=== PATIENT | male | born 1985 | race Caucasian/White ===

== ENCOUNTER 2017-02-17 09:42 | Observation (INO) ==
[2017-02-17] MEDS ORDERED: PANTOPRAZOLE 40 MG VIAL IV STA (10:04)
[2017-02-17] MEDS ORDERED: PANTOPRAZOLE 40 MG VIAL IV ONE (10:15)
[2017-02-17 10:18] LABS: Basophils # 0.1 10*3/uL (0.0-0.2); Basophils % 0.6 % (0.0-0.8); Eosinophils # 0.3 10*3/uL (0.0-0.87); Eosinophils % 2.8 % (0.00-10.9); Hematocrit 43.9 VOL% (42.0-52.0); Hemoglobin 15.4 GM/DL (14.0-18.0); Immature Granulocytes % 0.3 %; Immature Granulocytes Absolute 0.03 #; Lymphocytes # 2.3 10*3/uL (1.4-4.0); Lymphocytes % 24.3 % (21.2-54.2); Mean Corpuscular HGB Conc 35.1 GM/DL (32-36); Mean Corpuscular Hemoglobin 31 PG (27-34); Mean Corpuscular Volume 87.8 FL (87-102); Monocytes # 0.6 10*3/uL (0.11-0.8); Monocytes % 6.7 % (1.7-12.7); Neutrophils # 6.2 10*3/uL (1.4-7.4); Neutrophils % 65.3 % (38.7-73.9); Platelet Count 212 T/CUMM (130-400); Red Cell Distribution Width 12.6 % (9.3-17.3); White Blood Count 9.5 T/CUMM (4-12)
--- NOTE | 2017-02-17 10:20 | Emergency Department Note ---
Enzo Diamond Gwan, am scribing for, and in the presence of, Emery Coughlin MD 09:57 . Madyson Diamond James D, MD, personally performed the services described in this documentation, ascribed by Coleen Giraldo in my presence, and it is both accurate and complete . Arrival - Arrival Chief Complaint: Abdominal / Flank Pain Stated Complaint: stomach discomfort and pain lasting over 48hrs ED Nursing Triage Note: c/o upper stomach pain onset thursday. Mode of Arrival: Ambulatory Limitations: No Limitations Source: Patient, Old Records Reviewed, RN Notes Reviewed - History of Present Illness HPI Narrative: Patient is a 31 y/o male who presents to the ED with a c/o intermittent upper abd pain with an onset 4 days ago. He stated that his pain onset during the day when getting out of the pool. Patient describes his pain as more discomfort than pain and that his last BM was yesterday afternoon. He continued to note that he has had this pain before and usually at night. He confirmed that he has a very stressful job but denies an appetite. Patient is followed by Dr. Sesay in [place]. During exam, he said that he has had some red blood with BM but he has been told by PCP that it could be from hemorrhoids. He has a SHx of obsessional ETOH. No other problems/complaints reported in ED. Onset (ago): day(s) Consistency: constant Severity: moderate Allergies/Adverse Reactions: Allergies Allergy/AdvReac Type Severity Reaction Status Date / Time No Known Allergies Allergy Unverified 02/17/17 09:50 Home Medications: Home Medications Medication Instructions Recorded Confirmed Type PARoxetine [Paxil] 20 mg PO DAILY 02/17/17 02/17/17 History clonazePAM TAB [KlonoPIN] 0.5 mg PO BID PRN 02/17/17 02/17/17 History Review of System - Review of System 12 point system: reviewed and no additional remarkable complaints except as stated - Review of System Constitutional: Absent: chills, fever Eyes: Absent: discharge, pain Head/Ears/Nose/Throat: Absent: earache, epistaxis Gastrointestinal: Present: as per HPI, abdominal pain Medical,Surgical,& Family Hx - Medical History Psychological: History of: Anxiety Disorders - Social History Smoking Status: Smoker, status unknown Frequency of Alcohol Use: Occasionally Type of Drug Use: None Exam Physical Examination: GENERAL: This is a male in no apparent distress. VITAL SIGNS: HEENT: Head is normocephalic and atraumatic. Pupils are equally round and reactive to light. Extraocular movement are intact. Oropharynx is benign with moist mucous membranes. NECK: Neck is soft and supple without tenderness. There are no masses. There is no lymphadenopathy. LUNGS: Lungs are clear to auscultation bilaterally. Chest rises symmetrically. There is no chest wall tenderness. CV: Heart is regular rate and rhythm without murmurs, rubs, or gallops. ABDOMEN: Abdomen is soft, tender to palpation in right upper quadrant epigastric area. There are no abnormal masses palpated. There is no organomegaly. Bowel sounds are present and active. SKIN: Skin is warm and dry. No rash. EXTREMITIES: Patient has full range of motion without tenderness. There is no pedal edema. NEUROLOGIC: Awake, alert, and oriented x4. Cranial nerves II through XII are grossly intact. There are no motorsensory deficits. PSYCHIATRIC: Normal affect. Normal mood. Vital Signs: Vital Signs Temperature 98.4 F 02/17/17 10:00 Pulse Rate 54 L 02/17/17 11:00 Respiratory Rate 18 02/17/17 11:00 Blood Pressure 120/69 02/17/17 11:00 O2 Sat by Pulse Oximetry 100 02/17/17 11:00 Course - Consultations Consultation #1: Discussed with Dr. Cruz. Patient will be admitted to his service. Time: 11:42 Results - Labs CBC & BMP: 02/17/17 09:56 02/17/17 09:56 Lab Results: I have reviewed the patients labs Labs: Laboratory Tests 02/17/17 09:56 WBC 9.5 RBC 5.00 Hgb 15.4 Hct 43.9 Plt Count 212 Laboratory Tests 02/17/17 09:56 Sodium 139 Potassium 4.3 Chloride 105 Carbon Dioxide 27 BUN 14 Creatinine 1.10 Lipase 397.0 H - Diagnostic Findings Procedure: Abdominal x-ray: image reviewed by me (Nonspecific gas pattern, no free air, gas in the rectum.), Chest x-ray: image reviewed by me (No infiltrates , no pleural effusions.), Ultrasound: image reviewed by me, pending ( Gallbladder ultrasound: Cholelithiasis with a stone in the neck of the gallbladder. Borderline thickened gallbladder wall.) Disposition Clinical Impression: Epigastric pain, Right upper quadrant abdominal pain, Acute cholecystitis Case discussed with: patient Condition: Stable
[2017-02-17 10:57] LABS: Albumin 4.5 G/DL (3.4-5.0); Bilirubin,Total 0.4 MG/DL (0.2-1.0); Osmolality,Calculated 277.5 MOS/KG (273-304); Potassium 4.3 MMOL/L (3.5-5.1); Total Protein 7.7 G/DL (6.4-8.3)
[2017-02-17 11:29] LABS: Apearance,Urine CLEAR (Clear); Bilirubin,Urine Negative (Negative); Blood, Urine Negative (Negative); Glucose,Urine (UA) Negative (Negative); Ketones,Urine Negative (Negative); Mucus,Urine Few /LPF (Occasional); Nitrite,Urine Negative (Negative); Protein,Urine Negative; RBC,Urine 1 /HPF (0-4); Urine Color Yellow (Yellow); Urine Specific Gravity 1.019 (1.001-1.035); Urine Urobilinogen < 2.0 EU/DL (0.2-1.0); WBC,Urine 1 /HPF (0-6)
--- NOTE | 2017-02-17 11:30 | Ultrasound Report ---
History is epigastric and right upper abdominal pain There is gallbladder sludge with multiple small gallstones present. There is a stone lodged in the gallbladder neck. Gallbladder wall thickness measures up to 3 mm No biliary ductal dilatation is seen No right renal hydronephrosis seen The liver is 16.9 cm in length. Hepatic echotexture is normal Pancreas is obscured by overlying bowel gas Aorta and IVC are obscured by bowel gas Impression: 1. Midline retroperitoneal structures are obscured 2. Cholelithiasis including a stone lodged in the gallbladder neck with borderline gallbladder wall thickness. Is there any clinical question of acute cholecystitis? The Ultrasound images were captured and stored. PROCEDURE INTERPRETED AT [facility] DEPARTMENT OF RADIOLOGY Final Report Signed by: Dr. Mandi Bautista
--- NOTE | 2017-02-17 11:33 | XRay Report ---
History: Abdominal pain Date: 02/17/2017 Study: Flat and erect abdomen Comparison exam: No previous There is no evidence of pneumoperitoneum. Some small nonspecific fluid levels are noted in small bowel on the upright view. Some scattered stool and air are noted in the normal caliber colon. There is no renu bowel obstruction or gross mass lesion. No radiopaque calculi are seen. Phlebolith overlies the right hemipelvis. Osseous structures are unremarkable. Impression: Occasional small scattered nonspecific air-fluid levels without renu obstruction. Consider gastroenteritis. No definite acute process otherwise PROCEDURE INTERPRETED AT [facility] DEPARTMENT OF RADIOLOGY Final Report Signed by: Dr. Kelsy Manzo
--- NOTE | 2017-02-17 11:41 | XRay Report ---
History: Abdominal pain Date: 02/17/2017 Study: Chest x-ray single view Comparison exam: No previous chest x-ray The cardiac silhouette is not enlarged. There is no mediastinal mass. The pulmonary vasculature is not engorged. There is no pleural effusion. The lungs are well-expanded and are without acute infiltrate. There is no acute osseous abnormality. Impression: No acute cardiopulmonary process PROCEDURE INTERPRETED AT [facility] DEPARTMENT OF RADIOLOGY Final Report Signed by: Dr. Kelsy Manzo
[2017-02-17] MEDS ORDERED: ACETAMINOPHEN 325 MG TABLET PO PRN (12:44)
[2017-02-17] MEDS ORDERED: PROMETHAZINE 25 MG/1 ML VIAL IM PRN (12:44)
[2017-02-17] MEDS ORDERED: BISACODYL 5 MG TABLET PO PRN (12:44)
[2017-02-17] MEDS ORDERED: KETOROLAC 15 MG/1 ML VIAL IV PRN (12:44)
[2017-02-17] MEDS ORDERED: HYDROmorphone 2 MG/1 ML VIAL IV PRN (12:44)
[2017-02-17] MEDS ORDERED: ONDANSETRON 4 MG/2 ML VIAL IV PRN (12:44)
--- NOTE | 2017-02-17 13:08 | General Surg History&Physical ---
Assessment and Plan - Time spent with patient Time spent with patient: Greater than 30 minutes (1) Cholecystitis, acute with cholelithiasis Status: Acute Assessment and plan: Mr. Davis is a very pleasant 31-year-old white male with history of obstructive sleep apnea and anxiety disorder admitted by Dr. Cruz through the emergency room with acute cholecystitis with cholelithiasis and mild pancreatitis. Patient will be admitted and started on IV fluids and a clear liquid diet. He will be given pain and nausea control medicines along with antibiotics. Patient will be made n.p.o. after midnight and his labs will be rechecked in the morning. If his pancreatitis has resolved, he will go to the operating room for laparoscopic cholecystectomy by Dr. Cruz. If his lipase is rising then GI will be consulted for ERCP. Patient's anxiety medicines will be restarted and his will bring his CPAP machine. Will consult Dr. Cage to see the patient while he is here in the hospital for an ill fitting CPAP mask. Dr. Cruz has seen and examined patient and further recommendations to follow. Current Visit: Yes (2) Pancreatitis Status: Acute Current Visit: Yes (3) Obstructive sleep apnea Status: Acute Current Visit: Yes (4) Anxiety disorder Status: Acute Current Visit: Yes (5) Right upper quadrant abdominal pain Status: Acute Current Visit: Yes History of Present Illness Chief complaint: Abdominal pain and nausea History of present illness: Mr. Davis is a 31 year old white male with history of anxiety disorder and obstructive sleep apnea presented to the ED with a 2 day history of abdominal pain with nausea and vomiting. Patient states starting Thursday afternoon he started having some abdominal pain that he felt was bloating in the right upper quadrant and epigastric region. He states it somewhat went away but the last 2 nights it has been pretty severe. States he has not eaten anything about a day and a half because he is just not hungry. Patient states really off and on for the last several months he has had this pain and he was contributing it to an ill fitting CPAP mask. Patient states he has lost about 50-60 pounds in the last year on purpose and he feels his mask is not fitting appropriately anymore. Patient is complaining of nausea and bloating that is worse at night. Patient denies headache, dysphasia, chest pain, shortness of breath, constipation or diarrhea, or lower extremity edema. Past surgical history includes multiple orthopedic football injuries but nothing in the abdomen. Patient is afebrile and his vital signs are stable. Lab work is only showing a mildly elevated lipase. Ultrasound of the gallbladder shows cholelithiasis with sludge and multiple stones including a stone lodged in the gallbladder neck with gallbladder wall thickness. After discussion with Dr. Coughlin the ED physician and Dr. Cruz the surgeon, it was agreed patient would be admitted for further evaluation and treatment. Home Medications Medication Instructions Recorded Confirmed Type PARoxetine [Paxil] 20 mg PO DAILY 02/17/17 02/17/17 History clonazePAM TAB [KlonoPIN] 0.5 mg PO BID PRN 02/17/17 02/17/17 History Allergies Allergy/AdvReac Type Severity Reaction Status Date / Time No Known Allergies Allergy Unverified 02/17/17 09:50 Medical,Surgical,& Family Hx - Medical History Psychological: History of: Anxiety Disorders Respiratory: History of: Obstructive Sleep Apnea - Surgical History Orthopedic Surgeries: Surgical HX of;: Orthopedic Surgery - Family History Family History: Reports;: Family Cancer - Social History Smoking Status: Smoker, status unknown Frequency of Alcohol Use: Occasionally Type of Drug Use: None Marital Status: Lives With:: Spouse Functional capacity: independent ambulation Exam - Constitutional Vitals: Period Temp Pulse Resp BP Sys/Arroyo Pulse Ox Last 24 Hr 98.4 F-98.4 F 53-69 18-18 100-137/55-76 98-100 Exam: Constitutional System: No distress. No tremulousness. Head: Normocephalic, atraumatic. Ears, Nose and Throat System: No evidence of Otitis or Mastoiditis. No epistaxis or discharge Eyes System: Pupils equal, round, and reactive. Extraocular muscles intact. Neck: Supple, without adenopathy, No jugular venous distention. No thyromegaly, neck mass, or prior surgery apparent. Respiratory System: Chest clear to auscultation. Cardiovascular System: Heart with regular rate and rhythm. No murmur. GI System: Abdomen soft, mildly tender in right upper quadrant and epigastric region. Normo active bowel sounds present. Musculoskeletal System: limbs with no pedal edema. Full distal pulses. Neurological System: No discernable sensory deficit. No aphasia Psychiatric System: Conversation is rational Review of systems: A complete 10 system review of systems was obtained and pertinent positives and negatives per HPI Quality Measures - VTE Contraindication to Pharmacological VTE Prophylaxis: Clinical assessment deems Pt at low risk, no prophalaxis needed Results - Labs CBC & BMP: 02/17/17 09:56 02/17/17 09:56 Lab Results: I have reviewed the past 24 hour labs - Diagnostic Findings Procedure: Ultrasound: report reviewed by me (Ultrasound of the abdomen shows cholelithiasis including sludge with multiple gallstones and a stone lodged in the gallbladder neck with gallbladder wall thickness.)
[2017-02-17] MEDS ORDERED: clonazePAM 0.5 MG TABLET PO PRN (14:04)
[2017-02-17] MEDS: PARoxetine 20 MG TABLET PO SCH (14:19)
[2017-02-17] MEDS: PANTOPRAZOLE 40 MG VIAL IV SCH (14:19)
--- NOTE | 2017-02-17 14:58 | Sleep Medicine Consult ---
Assessment and Plan (1) Obstructive sleep apnea Status: Acute Assessment and plan: This patient does have a history of moderate obstructive sleep apnea diagnosed 7 years ago. He has lost over 30 pounds since the time of his original diagnosis. His sleep apnea may not be as bad as it was at the time of his original diagnosis and weight. I think it would be better to place him on auto titration device tonight with pressure range from 5-12 cm and see if he would benefit from a lower pressure. Certainly CPAP can contribute to aerophagia and discomfort though he obviously does have a cause for his abdominal pain and this is unlikely related to CPAP. Nevertheless, with such significant weight loss, I do think he may not need as much CPAP pressure as he was on to begin with. Current Visit: Yes History of Present Illness Chief complaint: Obstructive sleep apnea History of present illness: Mr. 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 He was placed on 12 cm of CPAP but is not seen Dr. Marlene Reina since diagnosis and treatment. He has been compliant with CPAP therapy and been getting supplies the local [facility]. He had been doing well on CPAP up until about the last few nights when he began to have upper abdominal pain. He thought that his pain was related to swallowing air from his CPAP machine. Get evaluated though because of persistent epigastric pain after stopping his CPAP and was found to have acute cholecystitis. He is scheduled for cholecystectomy tomorrow and sleep medicine was consulted regarding his CPAP therapy. Home Medications Medication Instructions Recorded Confirmed Type PARoxetine [Paxil] 20 mg PO DAILY 02/17/17 02/17/17 History clonazePAM TAB [KlonoPIN] 0.5 mg PO BID PRN 02/17/17 02/17/17 History Allergies Allergy/AdvReac Type Severity Reaction Status Date / Time No Known Allergies Allergy Verified 02/17/17 14:17 Review of systems: Otherwise unremarkable from a sleep medicine standpoint. Exam (Pulmonay) H&P - Constitutional Vitals: Period Temp Pulse Resp BP Sys/Arroyo Pulse Ox Last 24 Hr 98.2 F-98.4 F 51-69 18-18 100-137/51-76 98-100 Exam: He is alert and responsive in no acute distress. Pupils equal round reactive to light and accommodation. Extraocular movements intact. Oropharynx with a class III Mallampati exam. Neck is supple without adenopathy or thyromegaly. No supraclavicular adenopathy is noted. Chest with symmetrical breath sounds without focal wheeze, rhonchi, or rales. Cardiac exam reveals a regular rhythm without murmur or gallop. Abdomen soft with mild nonspecific tenderness. No palpable hepatosplenomegaly or mass. Extremities are without clubbing, cyanosis , or edema. Neurologically, he is grossly intact. He moves all extremities with good strength and ambulates with a normal gait. Medical,Surgical,& Family Hx - Medical History Psychological: History of: Anxiety Disorders, Depression Respiratory: History of: Obstructive Sleep Apnea - Surgical History Thoracic Surgeries: Patient denies;: Organ Transplant, Lobectomy Neurologic Surgeries: Patient denies: Neurologic Surgery Orthopedic Surgeries: Surgical HX of;: Orthopedic Surgery (broken leg, torn shoulder ligaments, broken thumb) - Family History Family History: Reports;: Family Cancer (grandfather), Family Hypertension ( mother) - Social History Smoking Status: Never smoker Frequency of Alcohol Use: Occasionally Type of Drug Use: None Results - Labs CBC & BMP: 02/17/17 09:56 02/17/17 09:56 Lab Results: I have reviewed the past 24 hour labs Quality Measures - VTE Contraindication to Pharmacological VTE Prophylaxis: Clinical assessment deems Pt at low risk, no prophalaxis needed
[2017-02-17] MEDS: LACTATED RINGERS 1,000 ML IV SCH (15:21)
[2017-02-17] MEDS: PIPERACILLIN/TAZOBACTAM 3,375 MG in SODIUM CHLORIDE 0.9% 100 ML IV SCH ×2 (15:22→21:01)
[2017-02-18] MEDS: LACTATED RINGERS 1,000 ML IV SCH ×2 (04:54→09:15)
[2017-02-18] MEDS: PIPERACILLIN/TAZOBACTAM 3,375 MG in SODIUM CHLORIDE 0.9% 100 ML IV SCH (04:55)
[2017-02-18] MEDS ORDERED: LIDOCAINE 1%/EPI INJ 20 ML VIAL ONE (06:45)
[2017-02-18] MEDS ORDERED: BUPIVACAINE 0.25% /EPI 10 ML VIAL ONE (06:45)
[2017-02-18 07:17] LABS: Basophils # 0.1 10*3/uL (0.0-0.2); Basophils % 0.8 % (0.0-0.8); Eosinophils # 0.4 10*3/uL (0.0-0.87); Eosinophils % 5.3 % (0.00-10.9); Hematocrit 40.1 VOL% (42.0-52.0); Hemoglobin 13.8 GM/DL (14.0-18.0); Immature Granulocytes % 0.3 %; Immature Granulocytes Absolute 0.02 #; Lymphocytes # 2.7 10*3/uL (1.4-4.0); Lymphocytes % 40.3 % (21.2-54.2); Mean Corpuscular HGB Conc 34.4 GM/DL (32-36); Mean Corpuscular Hemoglobin 31 PG (27-34); Mean Corpuscular Volume 88.9 FL (87-102); Mean Platelet Volume 10.7 FL (9.6-12.0); Monocytes # 0.5 10*3/uL (0.11-0.8); Monocytes % 7.7 % (1.7-12.7); Neutrophils % 45.6 % (38.7-73.9); Platelet Count 174 T/CUMM (130-400); Red Blood Count 4.51 MC/CUMM (3.8-5.5); Red Cell Distribution Width 12.6 % (9.3-17.3); White Blood Count 6.6 T/CUMM (4-12)
[2017-02-18 07:48] LABS: Bilirubin,Total 0.6 MG/DL (0.2-1.0); Calcium 8.8 MG/DL (8.5-10.1); Magnesium 2.3 MG/DL (1.8-2.4); Osmolality,Calculated 281.3 MOS/KG (273-304); Potassium 3.9 MMOL/L (3.5-5.1); Total Protein 6.6 G/DL (6.4-8.3)
[2017-02-18] MEDS ORDERED: TISSUE ADHESIVE 1 EACH APPLICATOR TOP ONE (09:09)
--- NOTE | 2017-02-18 09:47 | Anesthesia Post-Op ---
Anesthesia Post OP - Post Ansesthetic Evaluation Patient seen in post op: Yes Resp: within normal limits CV: within normal limits Mental: within normal limits Temp: within normal limits [id number]: within normal limits Nausea and Vomiting: within normal limits Pain: within normal limits
[2017-02-18] MEDS ORDERED: SEVOFLURANE 1 UNIT/15 MINUTE INH ONE (09:52)
[2017-02-18] MEDS ORDERED: PROPOFOL 200 MG/20 ML VIAL IV ONE (09:52)
[2017-02-18] MEDS ORDERED: GLYCOPYRROLATE 0.4 MG/2 ML VIAL ONE (09:53)
[2017-02-18] MEDS ORDERED: ACETAMINOPHEN 1,000 MG/100 ML VIAL IV ONE (09:53)
[2017-02-18] MEDS ORDERED: KETOROLAC 30 MG/1 ML VIAL ONE (09:53)
[2017-02-18] MEDS ORDERED: fentaNYL 100 MCG/2 ML VIAL ONE (09:53)
[2017-02-18] MEDS ORDERED: ONDANSETRON 4 MG/2 ML VIAL ONE ×2 (09:53→10:04)
[2017-02-18] MEDS ORDERED: MIDAZOLAM 2 MG/2 ML VIAL ONE (09:53)
[2017-02-18] MEDS ORDERED: DEXAMETHASONE 4 MG/1 ML VIAL ONE (09:53)
[2017-02-18] MEDS ORDERED: HYDROmorphone 2 MG/1 ML VIAL IV PRN (10:14)
[2017-02-18] MEDS ORDERED: ONDANSETRON 4 MG/2 ML VIAL IV PRN (10:14)
[2017-02-18] MEDS ORDERED: HYDROmorphone 2 MG/1 ML VIAL ONE (10:15)
[2017-02-18] MEDS ORDERED: PROMETHAZINE 25 MG/1 ML VIAL ONE (10:22)
[2017-02-18] MEDS ORDERED: METOCLOPRAMIDE 10 MG/2 ML VIAL ONE (10:24)
[2017-02-18] MEDS: METOCLOPRAMIDE 10 MG/2 ML VIAL IV ONE ×2 (10:30→10:40)
[2017-02-18] MEDS ORDERED: PROMETHAZINE INJ 6.25 MG in SODIUM CHLORIDE 0.9% 50 ML IV ONE (10:33)
--- NOTE | 2017-02-18 10:37 | Fluoroscopy Report ---
History: Patient with history of abdominal pain undergoing cholecystectomy Date: 02/18/2017 Study: Intraoperative cholangiogram Comparison exam: No previous Contrast material was injected into the biliary tree via the cystic duct stump by the surgeon Dr. Cruz in this patient undergoing cholecystectomy. 18 seconds fluoroscopy time was utilized. 127 images were captured and archived. There is no filling defect within the common bile duct to suggest choledochal stone or other choledochal mass. There is contrast material in the second portion of the duodenum compatible with renu patency of the common bile duct. The partially opacified hepatic ducts are unremarkable. Impression: Normal intraoperative cholangiogram PROCEDURE INTERPRETED AT [facility] DEPARTMENT OF RADIOLOGY Final Report Signed by: Dr. Kelsy Manzo
--- NOTE | 2017-02-18 12:00 | Operative Note ---
Date of procedure: 02/18/17 Pre-op diagnosis: Symptomatic cholelithiasis, possibly resolved gallstone pancreatitis Post-op diagnosis: same (Also with changes consistent with acute cholecystitis, early) Procedure: Procedure performed: Laparoscopic cholecystectomy with intraoperative cholangiogram #2 supervision and interpretation fluoroscopy Procedure in detail: After informed consent was obtained, the patient was taken operating suite lies upon the operating table. After general anesthesia was induced the abdomen was prepped and draped in usual sterile fashion. After procedural pause local anesthetic infiltrated the skin and subcutaneous tissue just above the umbilicus. Incision was made and dissection carried down through skin and soft tissue. Fascia grasped with Mabel's and elevated fascial incision was made in the abdominal cavity was entered bluntly. St trocar was placed under direct visualization. Pneumoperitoneum achieved. Camera inserted bowel mesentery inspected found to be free of any violation. Next patient was placed in reverse Trendelenburg position rotated to the left. 2 5 mm trochars were placed in the right upper quadrant 11 mm subxiphoid trocar was placed all under visualization. Gallbladder was identified. It had some edema of the wall. It appeared very distended. I was able to grasp the end of the gallbladder retracted superiorly. Infundibulum the gallbladder retracted toward the right hip. Dissection was carried out from lateral to medial approach and the triangle of Brittanie and the cystic duct and cystic artery were identified and isolated. Using a critical view technique these are the only 2 structures entering the gallbladder. There is relatively little edema at the triangle of Brittanie. I dissected the cystic artery until it was very close to the gallbladder where it split into 2 branches. A clip was placed to the junction of the cystic duct neck of the gallbladder and partial transection made on the cystic duct. Cholangiocatheter inserted and secured in place. Intraoperative glandular and performed. The cystic duct common bile duct intra- and extrahepatic ducts filled with no obvious filling defects identified. Contrast was seen easily entering the small bowel. Cholangiocatheter was removed and 2 clips placed on cystic duct just distal to the partial transection the transection completed both branches of the cystic artery were triple clipped and transected high along the gallbladder wall. The gallbladder was then removed from the gallbladder fossa using hook cautery placed in Endo Catch sac removed to the St trocar site. Pneumoperitoneum reachieved. The right upper quadrant thoroughly irrigated and suctioned. There is good hemostasis. The clips inspected found to be intact no leakage of bilious or sanguinous fluid. Irrigant remained clear was all suctioned. The trochars were removed as the abdomen desufflated. Fascia at the St trocar site closed using 0 Vicryl [id number] interrupted sutures. Wounds were thoroughly irrigated and suctioned. Deep dermal layer closed with 3-0 Vicryl. 4-0 Monocryl used to close skin. Sterile dressings applied. Patient was explained taken recovery room in stable condition. All lap and needle counts correct at the end of the case. Anesthesia: GETA Surgeon / Physician: Pedro Cruz Estimated blood loss: other (Less than 10 cc) Specimens: other (Gallbladder) Condition: stable Disposition: PACU Results - Labs CBC & BMP: 02/18/17 07:13 02/18/17 07:13 Discharge Plan - Discharge Medications No Action clonazePAM TAB [KlonoPIN] 0.5 mg PO BID PRN PRN Reason: Anxiety PARoxetine [Paxil] 20 mg PO DAILY - Follow Up or Referral - Forms/Instructions
[2017-02-18 12:35] VITALS: BP 115/61
--- NOTE | 2017-02-18 14:46 | Discharge Summary ---
Hospital Course - Hospital Course Hospital Course: Mr. Davis is a 31-year-old white male with history of DIOMEDES and anxiety disorder admitted by Dr. Cruz through the emergency room on 02/17/2017 with acute cholecystitis with cholelithiasis and mild pancreatitis. Patient was admitted and started on IV fluids and antibiotics with nausea and pain control. He was made n.p.o. after midnight and his lipase was checked in the a.m. His pancreatitis had resolved and he was taken to the OR on 02/18/2017 for laparoscopic cholecystectomy with intraoperative cholangiogram. The cystic duct , common bile duct, and intra-and extrahepatic ducts with no obvious filling defects identified. Patient has done very well postoperatively. He is tolerating a diet and his pain is controlled. He has urinated and ambulated. He will be discharged home with a 2 week follow-up with Dr. Cruz. Dr. Cage from sleep medicine was consulted due to patient having an ill- fitting CPAP mask. Patient did have at least a 30 pound weight loss over the last year so Dr. Cage placed him on an auto titration device with lower pressure ranges. Patient seemed to do well on this last night. Dr. Cage is out of town this afternoon so we will have the patient call his office tomorrow for follow-up. Complete discharge instructions were given to the patient and his family in the room. Care coordination, chart review, and completed discharge paperwork took approximately 37 minutes. - Time spent with patient Time with patient DS: Greater than 30 minutes Diagnosis - Discharge Diagnosis (1) Cholecystitis, acute with cholelithiasis Status: Resolved (2) Pancreatitis Status: Resolved (3) Obstructive sleep apnea Status: Chronic (4) Anxiety disorder Status: Chronic (5) Right upper quadrant abdominal pain Status: Resolved Discharge Plan - Discharge Data Disposition: Disch To Home/Self Care Condition at Discharge: Stable Discharge Diet: advance to your usual diet Activity: increase activity as tolerated, no lifting Hygiene: may shower Driving: other (no driving if taking pain pills) Contact your physician if you experience:: fever over 101, Nausea/Vomiting Wound / Dressing Care Instructions: ok to shower daily w mild soap and water, pat dry. ok to leave open to the air or cover prn w bandaids. - Discharge Medications New HYDROcodone/ACETAMIN 7.5-325 [Grahn 7.5-325] 1 tablet PO Q4H PRN #30 tablet PRN Reason: Pain Moderate (4-7) Continue clonazePAM TAB [KlonoPIN] 0.5 mg PO BID PRN PRN Reason: Anxiety PARoxetine [Paxil] 20 mg PO DAILY - Follow Up or Referral Follow Up: Pedro Cruz MD [Physician] - 2 Weeks Christine Cage MD [Physician] - (Call his office in the morning for follow-up) - Forms/Instructions Forms: Acute Care Work/School Release Exam - Constitutional Vitals: Period Temp Pulse Resp BP Sys/Arroyo Pulse Ox Last 24 Hr 97.1 F-97.8 F 48-98 15-20 98-137/46-79 92-100 Exam: 31-year-old white male, no acute distress, alert and oriented Chest clear CV regular rate and rhythm Abdomen soft, appropriately tender, incisions look good Extremities no edema Discharge Results Labs on day of discharge: Labs from last 24 hours 02/18/17 02/18/17 07:13 07:13 WBC 6.6 D RBC 4.51 Hgb 13.8 L Hct 40.1 L MCV 88.9 MCH 31 MCHC 34.4 RDW 12.6 Plt Count 174 MPV 10.7 Neut % (Auto) 45.6 Lymph % (Auto) 40.3 Anderson % (Auto) 7.7 Eos % (Auto) 5.3 Baso % (Auto) 0.8 Neut # (Auto) 3.0 Lymph # (Auto) 2.7 Anderson # (Auto) 0.5 Eos # (Auto) 0.4 Baso # (Auto) 0.1 Immature Gran % 0.3 Nucleated RBC % 0.0 Immature Gran # 0.02 Nucleated RBCs # 0.00 Sodium 141 Potassium 3.9 Chloride 105 Carbon Dioxide 30 Anion Gap 9.9 BUN 15 Creatinine 1.00 GFR Calculation 133 BUN/Creatinine Ratio 15.00 Glucose 96 Calculated Osmolality 281.3 Calcium 8.8 Magnesium 2.3 Total Bilirubin 0.60 AST 22 ALT 39 Alkaline Phosphatase 49 Total Protein 6.6 Albumin 4.0 Globulin 2.6 Albumin/Globulin Ratio 1.5 Amylase 64 Lipase 182.0 D DS: Provider Date of admission: 02/17/17 12:44 Primary care physician: . No PCP Attending physician on admission: Pedro Cruz MD Consults: 02/17/17 12:47 Consult to Physician [CONS] Routine Comment: ill-fitting CPAP mask Consulting Provider: Christine Cage When should Consulting Provider be notified: Now Person Notified: JORDAN Date Notified: 02/17/17 Time Notified: 14:23 02/17/17 12:49 Consult to Anesthesiology [CONS] Routine Consulting Provider: Reason for Anesthesiology: Pre-op Clearance Discharging clinician: LANA Moore Expected date of discharge: 02/18/17
[2017-02-18] MEDS: PARoxetine 20 MG TABLET PO SCH (15:06)
[2017-02-18] MEDS: PANTOPRAZOLE 40 MG VIAL IV SCH (15:07)
--- NOTE | 2017-02-19 13:21 | Pathology Report from [facility] ---
[facility] ACCESSION # : [id number] PATIENT NAME : Joseph Pro ORDERING DR : Pedro Cruz MD CLINICAL HX: Cholecystitis POST-OP DX: Same SPECIMEN INFO: Gallbladder GROSS DESCRIPTION: Received in formalin labeled JOSEPH PRO & GALLBLADDER is an intact gallbladder measuring 10.8 x 4.3 cm. The serosa is smooth and jimenez pink. The gallbladder wall has an average thickness of 0.3 cm. The mucosal surface is velvety and red casillas. The lumen is filled with yellow bile with a single oval pale green stone noted measuring 2.4 x 1.5 cm. [employer] sections are submitted in one cassette. DIAGNOSIS FOR JOSEPH PRO: GALLBLADDER, CHOLECYSTECTOMY: Chronic cholecystitis ; cholelithiasis. COLLECTED DATE: 02/18/2017 [facility] REPORT DATE: 02/19/2017 ELECTRONICALLY SIGNED BY: Georgina Buck M.D. 02/19/2017 - 10:20:09 LIVE
== END 2017-02-18 15:46 | disposition home or self-care (01) ==
LOC: N.ED 09:42 → INTOOBSV 12:44 → N.EDINP 12:44 → N.5E 14:05
PROVIDERS: ADMIT Surgery; ATTEND Surgery
PROC: LAPCHOL (2017-02-18 08:35)